=== PATIENT | male | born 1955 | race Caucasian/White ===

== ENCOUNTER 2019-02-21 12:52 | Inpatient (IN) | payer OTHER ==
[~2019-02-21] VITALS: Ht 162.6 cm; Wt 73.5 kg
[2019-02-21] MEDS ORDERED: MAGNESIUM/ALUMINUM HYDROXIDE/SIMETHICONE 30ML UDC PO ONE (13:30)
[2019-02-21] MEDS ORDERED: DICYCLOMINE 10 MG/5 ML ORAL SYR PO ONE (13:30)
[2019-02-21] MEDS ORDERED: VISCOUS LIDOCAINE 2% 15 ML UDC PO ONE (13:30)
[2019-02-21] MEDS ORDERED: ASPIRIN 81MG TABLET PO ONE (13:30)
[2019-02-21 13:47] LABS: CHLORIDE 96 mEq/L (98-107)
[2019-02-21 14:01] LABS: BASOPHILS % 0.4 % (0.0-2.0); EOSINOPHILS % 0.3 % (0.0-5.0); HEMATOCRIT. 23.4 % (42.0-52.0); HEMOGLOBIN. 7.3 g/dL (14.0-18.0); LYMPHOCYTES % 10.2 % (20.0-50.0); MEAN CORPUSCULAR HEMOGLOBIN 21.5 pg (28.0-32.0); MEAN CORPUSCULAR VOLUME 69.4 fL (80.0-94.0); MEAN PLATELET VOLUME 6.7 fl (7.4-10.4); MONOCYTES % 8.5 % (2.0-8.0); NEUTROPHILS % 80.6 % (40.0-76.0); PLATELET 378 x1000/uL (130-400); RED BLOOD CELL COUNT 3.37 mill/uL (4.7-6.1); RED CELL DISTRIBUTION WIDTH 17.4 % (11.6-14.6)
[2019-02-21] MEDS ORDERED: MORPHINE SULFATE 4 MG/ML CPJ (NOT FOR IM USE) IV ONE ×2 (14:15→21:15)
[2019-02-21 14:19] LABS: PLATELET ESTIMATE NORMAL
[2019-02-21] MEDS ORDERED: SODIUM CHLORIDE 0.9% 1,000 ML IV ONE (15:45)
[2019-02-21 16:42] LABS: HEMATOCRIT 21.6 % (42.0-52.0); MEAN CORPUSCULAR HEMOGLOBIN 21.9 pg (28.0-32.0); PLATELET 312 x1000/uL (130-400); RED BLOOD CELL COUNT 3.04 mill/uL (4.7-6.1); RED CELL DISTRIBUTION WIDTH 17.7 % (11.6-14.6)
[2019-02-21 16:51] LABS: HEMOGLOBIN 6.7 g/dL (14.0-18.0)
[2019-02-21] MEDS ORDERED: ACETAMINOPHEN WITH CODEINE 300/30MG TABLET PO ONE (17:15)
[2019-02-21] MEDS ORDERED: PANTOPRAZOLE SODIUM 40 MG/VIAL IV ONE ×2 (17:15→18:33)
[2019-02-21] MEDS ORDERED: ONDANSETRON HCL 4MG/2ML INJ IV PRN (17:30)
[2019-02-21] MEDS ORDERED: IPRATROPIUM/ALBUTEROL 0.5-3(2.5)MG/3ML NEB INH PRN (17:30)
[2019-02-21] MEDS ORDERED: DIPHENHYDRAMINE 50MG/ML VIAL IV PRN (17:30)
[2019-02-21] MEDS ORDERED: MAGNESIUM/ALUMINUM HYDROXIDE/SIMETHICONE 30ML UDC PO PRN (17:30)
[2019-02-21] MEDS ORDERED: GUAIFENESIN 200MG/10ML SUGAR FREE UDC PO PRN (17:30)
[2019-02-21] MEDS: SODIUM CHLORIDE 0.9% 1,000 ML IV SCH (17:30)
[2019-02-21] MEDS ORDERED: ACETAMINOPHEN 325MG TABLET PO PRN (17:30)
[2019-02-21] MEDS ORDERED: DOCUSATE SODIUM 100MG CAPSULE PO PRN (17:30)
[2019-02-21] MEDS ORDERED: CLONIDINE 0.1MG TABLET PO PRN (17:30)
[2019-02-21] MEDS: PANTOPRAZOLE 80 MG in SODIUM CHLORIDE 0.9% 100 ML IV SCH ×2 (18:30→18:37)
[2019-02-21] MEDS ORDERED: PIPERACILLIN/TAZ 3.375G PREMIX 50 ML IV SCH (18:45)
[2019-02-21 23:38] VITALS: BP 111/63
[2019-02-21] MEDS ORDERED: TAMS-11 PO (23:55)
[2019-02-21] MEDS ORDERED: FERR325T6 PO (23:55)
[2019-02-22] VITALS (10 sets, daily range): BP systolic 100–126; BP diastolic 61–70
[2019-02-22] MEDS: HYDROCODONE/ACETAMINOPHEN 5/325MG TABLET PO PRN ×4 (00:04→21:30)
[2019-02-22] MEDS ORDERED: CYAN10003 SL (00:05)
[2019-02-22] MEDS ORDERED: OMEG100016 PO (00:05)
[2019-02-22] MEDS ORDERED: MULT-1116 PO (00:06)
[2019-02-22] MEDS: PIPERACILLIN/TAZ 3.375G PREMIX 50 ML IV SCH ×4 (01:44→23:36)
[2019-02-22 02:15] LABS: BASOPHILS % 0.3 % (0.0-2.0); EOSINOPHILS % 0.3 % (0.0-5.0); HEMATOCRIT. 22.5 % (42.0-52.0); LYMPHOCYTES % 9.5 % (20.0-50.0); MEAN CORPUSCULAR HEMOGLOBIN 22.3 pg (28.0-32.0); MEAN CORPUSCULAR VOLUME 71.5 fL (80.0-94.0); MEAN PLATELET VOLUME 6.7 fl (7.4-10.4); MONOCYTES % 9.4 % (2.0-8.0); NEUTROPHILS % 80.5 % (40.0-76.0); PLATELET 310 x1000/uL (130-400); RED BLOOD CELL COUNT 3.15 mill/uL (4.7-6.1); RED CELL DISTRIBUTION WIDTH 17.9 % (11.6-14.6)
[2019-02-22] MEDS ORDERED: DEXTROSE 50% WATER 50ML SYRINGE IV PRN (03:00)
[2019-02-22 03:04] LABS: CREATINE KINASE 38 IU/L (39-308)
[2019-02-22 03:05] LABS: CREATINE KINASE MB FRACTION < 1.0 ng/mL (0.5-3.6)
[2019-02-22] MEDS: PANTOPRAZOLE 80 MG in SODIUM CHLORIDE 0.9% 100 ML IV SCH (04:12)
[2019-02-22] MEDS ORDERED: PANTOPRAZOLE 80 MG in SODIUM CHLORIDE 0.9% 100 ML IV SCH (04:30)
[2019-02-22] MEDS: INSULIN LISPRO 100 UNITS/ML SUBCUT SCH ×4 (06:30→21:00)
[2019-02-22] MEDS: BLOOD SUGAR DIAGNOSTIC STRIP TEST SCH ×4 (06:30→21:30)
[2019-02-22 07:09] LABS: BASOPHILS % 0.4 % (0.0-2.0); EOSINOPHILS % 0.6 % (0.0-5.0); HEMATOCRIT. 21.4 % (42.0-52.0); LYMPHOCYTES % 12.4 % (20.0-50.0); MEAN CORPUSCULAR HEMOGLOBIN 22.8 pg (28.0-32.0); MEAN CORPUSCULAR VOLUME 71.7 fL (80.0-94.0); MEAN PLATELET VOLUME 6.8 fl (7.4-10.4); MONOCYTES % 10.5 % (2.0-8.0); NEUTROPHILS % 76.1 % (40.0-76.0); PLATELET 299 x1000/uL (130-400); RED BLOOD CELL COUNT 2.98 mill/uL (4.7-6.1); RED CELL DISTRIBUTION WIDTH 17.6 % (11.6-14.6)
[2019-02-22 09:08] LABS: HEMOGLOBIN. 6.8 g/dL (14.0-18.0)
[2019-02-22 09:49] LABS: CHLORIDE 99 mEq/L (98-107)
[2019-02-22 10:03] LABS: CREATINE KINASE 35 IU/L (39-308)
[2019-02-22 10:04] LABS: HDL CHOLESTEROL 35 mg/dL (40-59); LDL CHOLESTEROL 41 mg/dL (5-100)
[2019-02-22 10:08] LABS: CREATINE KINASE MB FRACTION < 1.0 ng/mL (0.5-3.6)
[2019-02-22 12:27] LABS: TOTAL IRON BINDING CAPACITY 206 ug/dL (250-450)
[2019-02-22 12:45] LABS: FOLIC ACID (FOLATE) SERUM 18.2 ng/mL (>5.38)
[2019-02-22 14:44] LABS: HEMATOCRIT 25.7 % (42.0-52.0); HEMOGLOBIN 8.2 g/dL (14.0-18.0)
[2019-02-22] MEDS: SODIUM CHLORIDE 0.9% 1,000 ML IV SCH (18:57)
[2019-02-22] MEDS: FAMOTIDINE 20MG/2ML VIAL IV SCH (21:29)
[2019-02-23] VITALS (7 sets, daily range): BP systolic 103–129; BP diastolic 62–72
[2019-02-23 00:10] LABS: HEMATOCRIT 26.3 % (42.0-52.0); HEMOGLOBIN 8.4 g/dL (14.0-18.0)
[2019-02-23] MEDS: PIPERACILLIN/TAZ 3.375G PREMIX 50 ML IV SCH ×4 (05:58→23:23)
[2019-02-23 06:43] LABS: BASOPHILS % 0.4 % (0.0-2.0); EOSINOPHILS % 1.5 % (0.0-5.0); HEMATOCRIT. 28.3 % (42.0-52.0); HEMOGLOBIN. 8.9 g/dL (14.0-18.0); LYMPHOCYTES % 13.9 % (20.0-50.0); MEAN CORPUSCULAR HEMOGLOBIN 23.3 pg (28.0-32.0); MEAN CORPUSCULAR VOLUME 74.1 fL (80.0-94.0); MEAN PLATELET VOLUME 6.8 fl (7.4-10.4); MONOCYTES % 10.5 % (2.0-8.0); NEUTROPHILS % 73.7 % (40.0-76.0); PLATELET 318 x1000/uL (130-400); RED BLOOD CELL COUNT 3.82 mill/uL (4.7-6.1); RED CELL DISTRIBUTION WIDTH 19.5 % (11.6-14.6)
[2019-02-23] MEDS: BLOOD SUGAR DIAGNOSTIC STRIP TEST SCH ×4 (06:57→20:21)
[2019-02-23] MEDS: INSULIN LISPRO 100 UNITS/ML SUBCUT SCH ×4 (06:58→20:27)
[2019-02-23 07:32] LABS: CHLORIDE 100 mEq/L (98-107)
[2019-02-23] MEDS: FAMOTIDINE 20MG/2ML VIAL IV SCH ×2 (08:31→20:25)
[2019-02-23] MEDS: SODIUM CHLORIDE 0.9% 1,000 ML IV SCH (08:31)
[2019-02-23] MEDS: FERROUS SULFATE 325MG TABLET PO SCH (18:21)
[2019-02-23] MEDS: ASCORBIC ACID 500 MG TABLET PO SCH (20:25)
[2019-02-24 04:00] VITALS: BP 114/65
[2019-02-24] MEDS: BLOOD SUGAR DIAGNOSTIC STRIP TEST SCH ×4 (05:25→21:08)
[2019-02-24] MEDS: SODIUM CHLORIDE 0.9% 1,000 ML IV SCH ×2 (06:11→17:01)
[2019-02-24] MEDS: PIPERACILLIN/TAZ 3.375G PREMIX 50 ML IV SCH ×3 (06:11→17:00)
[2019-02-24 07:09] LABS: CHLORIDE 103 mEq/L (98-107)
[2019-02-24] MEDS: INSULIN LISPRO 100 UNITS/ML SUBCUT SCH ×4 (07:15→21:30)
[2019-02-24 07:18] LABS: BASOPHILS % 0.6 % (0.0-2.0); EOSINOPHILS % 1.4 % (0.0-5.0); HEMATOCRIT. 27.7 % (42.0-52.0); HEMOGLOBIN. 8.8 g/dL (14.0-18.0); LYMPHOCYTES % 12.4 % (20.0-50.0); MEAN CORPUSCULAR HEMOGLOBIN 23.5 pg (28.0-32.0); MEAN PLATELET VOLUME 6.8 fl (7.4-10.4); MONOCYTES % 10.6 % (2.0-8.0); PLATELET 328 x1000/uL (130-400); RED BLOOD CELL COUNT 3.74 mill/uL (4.7-6.1); RED CELL DISTRIBUTION WIDTH 19.8 % (11.6-14.6)
[2019-02-24 08:00] VITALS: BP 116/70
[2019-02-24 08:52] VITALS: BP 116/70
[2019-02-24] MEDS: FAMOTIDINE 20MG/2ML VIAL IV SCH ×2 (11:20→21:09)
[2019-02-24] MEDS: FERROUS SULFATE 325MG TABLET PO SCH ×2 (11:21→17:00)
[2019-02-24] MEDS: ASCORBIC ACID 500 MG TABLET PO SCH ×2 (11:21→21:09)
[2019-02-24 12:00] VITALS: BP 115/63
[2019-02-24 16:00] VITALS: BP 108/66
[2019-02-24] MEDS: BISACODYL 5MG TABLET PO SCH ×2 (16:59→21:09)
[2019-02-24] MEDS: METOCLOPRAMIDE HCL 10MG/2ML VIAL IV SCH ×2 (17:00→21:09)
[2019-02-24] MEDS: SORBITOL 70% SOLN 30ML PO SCH ×2 (17:01→21:08)
[2019-02-24] MEDS ORDERED: MORPHINE SULFATE 2 MG/ML CPJ (NOT FOR IM USE) IV PRN (17:45)
[2019-02-24 20:00] VITALS: BP 117/68
[2019-02-24] MEDS ORDERED: POTASSIUM CHLORIDE 20MEQ/PACKET PO NR (21:00)
[2019-02-24] MEDS: NITROGLYCERIN OINT 1GM/INCH UDPKT TD SCH (21:10)
[2019-02-24 21:28] LABS: CREATINE KINASE 31 IU/L (39-308); CREATINE KINASE MB FRACTION < 1.0 ng/mL (0.5-3.6)
[2019-02-25] VITALS: BP 108/67
[2019-02-25] MEDS: BISACODYL 5MG TABLET PO SCH (00:43)
[2019-02-25] MEDS: SORBITOL 70% SOLN 30ML PO SCH (00:44)
[2019-02-25] MEDS: PIPERACILLIN/TAZ 3.375G PREMIX 50 ML IV SCH ×3 (00:44→12:55)
[2019-02-25] MEDS: METOCLOPRAMIDE HCL 10MG/2ML VIAL IV SCH (00:44)
[2019-02-25] MEDS: NITROGLYCERIN OINT 1GM/INCH UDPKT TD SCH ×3 (02:54→15:00)
[2019-02-25 04:00] VITALS: BP 110/63
[2019-02-25] MEDS: BLOOD SUGAR DIAGNOSTIC STRIP TEST SCH ×3 (05:42→16:57)
[2019-02-25 06:45] LABS: CHLORIDE 111 mEq/L (98-107)
[2019-02-25 06:51] LABS: BASOPHILS % 0.5 % (0.0-2.0); EOSINOPHILS % 0.3 % (0.0-5.0); HEMATOCRIT. 28.4 % (42.0-52.0); HEMOGLOBIN. 9.3 g/dL (14.0-18.0); LYMPHOCYTES % 11.2 % (20.0-50.0); MEAN CORPUSCULAR HEMOGLOBIN 24.5 pg (28.0-32.0); MEAN CORPUSCULAR VOLUME 75.1 fL (80.0-94.0); MEAN PLATELET VOLUME 6.7 fl (7.4-10.4); MONOCYTES % 11.2 % (2.0-8.0); NEUTROPHILS % 76.8 % (40.0-76.0); PLATELET 349 x1000/uL (130-400); RED BLOOD CELL COUNT 3.78 mill/uL (4.7-6.1); RED CELL DISTRIBUTION WIDTH 20.1 % (11.6-14.6)
[2019-02-25] MEDS: INSULIN LISPRO 100 UNITS/ML SUBCUT SCH ×2 (07:15→12:15)
[2019-02-25] MEDS: FERROUS SULFATE 325MG TABLET PO SCH ×2 (07:15→12:15)
[2019-02-25 08:00] VITALS: BP 106/63
[2019-02-25] MEDS ORDERED: POTASSIUM CHLORIDE 20MEQ/PACKET PO PRN (08:00)
[2019-02-25] MEDS: ASCORBIC ACID 500 MG TABLET PO SCH (08:29)
[2019-02-25] MEDS: FAMOTIDINE 20MG/2ML VIAL IV SCH (09:18)
[2019-02-25] MEDS ORDERED: SIMETHICONE 40 MG/0.6 ML 30ML ONE (10:02)
[2019-02-25] MEDS ORDERED: MIDAZOLAM HCL 5 MG/5 ML VIAL ONE (10:21)
[2019-02-25] MEDS ORDERED: FENTANYL CITRATE/PF 50MCG/ML 2ML VIAL ONE (10:22)
[2019-02-25] MEDS ORDERED: MIDAZOLAM HCL 5 MG/5 ML VIAL IV PRN (10:23)
[2019-02-25] MEDS ORDERED: FENTANYL CITRATE/PF 50MCG/ML 2ML VIAL IV PRN (10:24)
[2019-02-25] MEDS: SODIUM CHLORIDE 0.9% 1,000 ML IV SCH (12:56)
[2019-02-25 13:00] VITALS: BP 113/69
[2019-02-25 16:00] VITALS: BP 115/63
[2019-02-25 16:08] VITALS: BP 115/63
== END 2019-02-25 17:33 | disposition short-term general hospital (02) | DRG 377 ==
LOC: ER 12:52 → 5WST 16:28 → EDBEDREQTM 16:31 → EDBEDREQ 16:31 → ENRESERV 21:51
PROVIDERS: ADMIT Internal Medicine; ATTEND Internal Medicine
PROC: 30233N1 Transfusion of Nonautologous Red Blood Cells into Peripheral Vein, Percutaneous Approach (ICD-10-PCS; principal; 2019-02-21)
PROC: 0DBP8ZZ Excision of Rectum, Via Natural or Artificial Opening Endoscopic (ICD-10-PCS; 2019-02-25)
PROC: 0DB68ZX Excision of Stomach, Via Natural or Artificial Opening Endoscopic, Diagnostic (ICD-10-PCS; 2019-02-25)
DX: K92.1 Melena (principal); E43 Unspecified severe protein-calorie malnutrition; C64.2 Malignant neoplasm of left kidney, except renal pelvis; I20.0 Unstable angina; E87.1 Hypo-osmolality and hyponatremia; C79.51 Secondary malignant neoplasm of bone; I30.9 Acute pericarditis, unspecified; I31.9 Disease of pericardium, unspecified; D50.0 Iron deficiency anemia secondary to blood loss (chronic); I49.3 Ventricular premature depolarization; I27.20 Pulmonary hypertension, unspecified; K44.9 Diaphragmatic hernia without obstruction or gangrene; K29.70 Gastritis, unspecified, without bleeding; K62.1 Rectal polyp; K64.8 Other hemorrhoids; D75.9 Disease of blood and blood-forming organs, unspecified; C80.1 Malignant (primary) neoplasm, unspecified; Z79.899 Other long term (current) drug therapy
CPT/HCPCS: 36415; 71045; 74176; 80048; 80061; 82550; 82553; 82607; 82728; 82746; 82962; 83540; 83550; 83880; 84443; 84484; 85014; 85018; 85027; 85379; 86850; 86900; 86920; 88305; 88312; 88313; 93005; 93306; 93970; 94640; 96365; 96375; 97161; 97166; 99152; 99291; C9113; J1815; J2250; J2270; J2405; J2543; J2765; J3010; J3490; J7030; J7040; J7050; J7620; P9016; G0500

== ENCOUNTER 2019-02-28 12:30 | Emergency (ER) | payer OTHER ==
[~2019-02-28] VITALS: Ht 172.7 cm; Wt 68.0 kg
[~2019-02-28 12:30] MED LIST: CYAN10003 SL; FERR325T6 PO; MULT-1116 PO; OMEG100016 PO; TAMS-11 PO
[2019-02-28 13:33] LABS: BASOPHILS % 0.5 % (0.0-2.0); CHLORIDE 98 mEq/L (98-107); EOSINOPHILS % 0.7 % (0.0-5.0); HEMATOCRIT. 25.9 % (42.0-52.0); HEMOGLOBIN. 8.2 g/dL (14.0-18.0); LYMPHOCYTES % 10.9 % (20.0-50.0); MEAN CORPUSCULAR HEMOGLOBIN 23.2 pg (28.0-32.0); MEAN CORPUSCULAR VOLUME 73.9 fL (80.0-94.0); MEAN PLATELET VOLUME 6.8 fl (7.4-10.4); MONOCYTES % 10.5 % (2.0-8.0); NEUTROPHILS % 77.4 % (40.0-76.0); PLATELET 317 x1000/uL (130-400); RED BLOOD CELL COUNT 3.51 mill/uL (4.7-6.1); RED CELL DISTRIBUTION WIDTH 20.3 % (11.6-14.6)
[2019-02-28 15:44] VITALS: BP 135/87
== END 2019-02-28 15:58 | disposition home or self-care (01) ==
LOC: ER 12:30
DX: C64.9 Malignant neoplasm of unspecified kidney, except renal pelvis (principal); J84.9 Interstitial pulmonary disease, unspecified
CPT/HCPCS: 36415; 71045; 83880; 84484; 93005; 99284